=== PATIENT | female | born 1955 | race African-American/Black ===

== ENCOUNTER 2017-04-11 04:46 | Emergency (ER) | payer OTHER ==
[~2017-04-11] VITALS: Ht 160 cm; Wt 124.7 kg
[~2017-04-11 04:46] MED LIST: ADVAIR 250-501 EACH INH; DETROL2 MG ORAL; DIFLUCAN100 MG ORAL; ENBREL25 MG SUBQ; GLUCOSAMINE1000 M1 PO; LEVOTHYROXINE75 MCG ORAL; METHOTREXATE2.5 MG PO; NEURONTIN300 MG ORAL; NYSTATIN CREAM15 GM TOPIC; NYSTATIN1 EAC9 TOPIC; VITAMIN D-32000 UNI1 PO
[2017-04-11] MEDS ORDERED: PREDNISONE20 MG ORAL (05:07)
[2017-04-11] MEDS ORDERED: ANTI-ITCH28 G1 TP (05:07)
[2017-04-11] MEDS ORDERED: PredniSONE 20mg tab ORAL ONE (05:15)
[2017-04-11 05:25] VITALS: BP 132/92
[2017-04-11 05:28] VITALS: BP 132/92
--- NOTE | 2017-04-11 06:02 | Emergency Room Report ---
History of Present Illness General Chief Complaint: Skin Rash/Abscess Source: Patient Present Illness HPI Patient is a 61-year-old female who presented after increased rash her upper extremities. Patient prior history of rheumatoid arthritis had been taking methotrexate. Patient reported having increased burning sensation to her upper extremities. This did not radiate. She had no fever. Patient had been applying topical medications without relief. The patient prior history of allergic reactions to skin contact. Allergies: Coded Allergies: PENICILLINS (Unverified Allergy, Unknown, 10/21/14) Jerking movement Patient History Past Medical History: see triage record Last Menstrual Period: Menopause Now: No Reviewed Nursing Documentation: PMH: Agreed, PSxH: Agreed Nursing Documentation-PMH Past Medical History: No History, Except For Hx Asthma: Yes Hx Gastrointestinal Problems: No - Fibroid tumor removal 3 times, Myomectomy Hx Dialysis: No - [facility] in 2002, Uterine reconstruction op Review of Systems All Other Systems: negative except mentioned in HPI Physical Exam Vital Signs Date Time Temp Pulse Resp B/P Pulse Ox O2 Delivery O2 Flow Rate FiO2 04/11/17 04:57 97.9 88 16 136/89 99 Room Air General Appearance: well appearing, no apparent distress, alert, GCS 15 Head: normocephalic, atraumatic ENT: hearing grossly normal, normal voice Neck: full range of motion, supple Respiratory: no respiratory distress, speaking full sentences Musculoskeletal: normal inspection, back normal, no calf tenderness Neurologic: normal gait Psychiatric: mood/affect normal Skin: other - multiple excoriated urticarial lesions to upper extremities, no erythema Medical Decision Making Diagnostic Impression: Primary Impression: Rash and other nonspecific skin eruption ER Course Patient presented for skin rash. Differential diagnosis included was not limited to Jones-Adrien syndrome, urticaria, erythema multiforme, contact dermatitis. Patient's benign exam and does not appear to require any further imaging or laboratory testing at this time. The patient was given oral prednisone. The rash appears to be a urticarial type rash which may represent some contact allergy. Patient was given prescription for prednisone as well as Cortizone cream. As she is advised to take antihistamines [id number]. The patient shows no evidence of airway compromise or difficulty breathing. The patient is advised to return is she began having any concerning signs or symptoms. Last Vital Signs Date Time Temp Pulse Resp B/P Pulse Ox O2 Delivery O2 Flow Rate FiO2 04/11/17 05:28 97.9 86 16 132/92 99 Room Air Status: improved Disposition: HOME, SELF-CARE Condition: Stable Scripts Hydrocortisone 2% Cream (ANTI-ITCH 2% CREAM) Y Cr 28 GM TP DAILY, #30 GM Prov: Adrian Swenson 04/11/17 Prednisone* (PREDNISONE*) 20 Mg Tablet 40 MG ORAL DAILY, #10 TAB Prov: Adrian Swenson 04/11/17 Referrals: [facility] (PCP) Patient Instructions: Adrian Weiner Apr 11, 2017 06:02
[2017-04-11] MEDS ORDERED: BENADRYL25 MG ORAL (21:16)
[2017-04-11] MEDS ORDERED: [UNRECOGNIZED DRUG - OTHER] TP (21:16)
[2017-04-11] MEDS ORDERED: RANITIDINE HCL150 MG ORAL (21:16)
== END 2017-04-11 05:30 | disposition home or self-care (01) ==
LOC: EMR 05:00
DX: R21 Rash and other nonspecific skin eruption (principal); J45.909 Unspecified asthma, uncomplicated; Z88.0 Allergy status to penicillin
CPT/HCPCS: 99284

== ENCOUNTER 2017-04-11 18:28 | Emergency (ER) | payer OTHER ==
[~2017-04-11] VITALS: Ht 160 cm; Wt 124.7 kg
[~2017-04-11 18:28] MED LIST changes: +ANTI-ITCH28 G1 TP; +PREDNISONE20 MG ORAL
[2017-04-11] MEDS ORDERED: DiphenhydrAMINE 50mg/ml Inj IM ONE (19:00)
[2017-04-11] MEDS ORDERED: Ketorolac 60mg Inj IM ONE (19:00)
[2017-04-11 19:11] VITALS: BP 148/94
[2017-04-11 20:42] LABS: BASOPHILS % (AUTO) 0.8 % (0.0-2.0); EOSINOPHILS % (AUTO) 0.5 % (0.0-3.0); LYMPHOCYTES % (AUTO) 18.5 % (20.0-45.0); MEAN CORPUSCULAR HEMOGLOBIN 30.2 PG (27.0-31.0); MEAN CORPUSCULAR HGB CONC 32.9 G/DL (32.0-36.0); MEAN CORPUSCULAR VOLUME 92 FL (80-99); MEAN PLATELET VOLUME 8.1 FL (6.5-10.1); MONOCYTES % (AUTO) 3.6 % (1.0-10.0); NEUTROPHILS % (AUTO) 76.5 % (45.0-75.0); PLATELET COUNT 305 K/UL (150-450); RED BLOOD COUNT 4.48 M/UL (4.20-5.40); RED CELL DISTRIBUTION WIDTH 16.2 % (11.6-14.8); WHITE BLOOD COUNT 10.3 K/UL (4.8-10.8)
[2017-04-11 20:43] VITALS: BP 145/97
[2017-04-11 20:53] LABS: ALANINE AMINOTRANSFERASE 11 U/L (3-33); ALBUMIN/GLOBULIN RATIO 1.4 (1.0-2.7); ANION GAP 12 (5-15); ASPARTATE AMINO TRANSFERASE 17 U/L (5-40); CALCIUM 9.4 mg/dL (8.6-10.2); CARBON DIOXIDE 25 mEQ/L (20-30); CHLORIDE 104 mEQ/L (98-107); CREATININE 0.8 mg/dL (0.5-0.9); GLOMERULAR FILTRATION RATE > 60 mL/min (>60); HEMOLYSIS 17; POTASSIUM 4.4 mEQ/L (3.4-4.9); SODIUM 141 mEQ/L (135-145); TOTAL PROTEIN 7.2 g/dL (6.6-8.7)
[2017-04-11 21:00] LABS: INR 0.9 (0.9-1.1); PROTHROMBIN TIME 9.7 SEC (9.30-11.50)
[2017-04-11] MEDS ORDERED: BENADRYL25 MG ORAL (21:16)
[2017-04-11] MEDS ORDERED: [UNRECOGNIZED DRUG - OTHER] TP (21:16)
[2017-04-11] MEDS ORDERED: RANITIDINE HCL150 MG ORAL (21:16)
[2017-04-11 21:34] VITALS: BP 145/97
--- NOTE | 2017-04-11 21:38 | Emergency Room Report ---
History of Present Illness General Chief Complaint: Skin Rash/Abscess Source: Patient, Medical Record Present Illness HPI The patient is a [id number] female presenting for continuing rash. Patient was seen in this emergency department earlier this morning and was diagnosed with contact dermatitis. She was given 60 mg of prednisone as well as a prescription for prednisone and hydrocortisone. She states that symptoms have worsened and the rash is now encompassing more area. She states that she is experiencing an 8/10 burning/itching sensation of the rash. Pain does not radiate from the areas. She is unsure of what may have caused this but does state that she sat on the couch yesterday which caused her to have a reaction when she was a child. She is unsure if she ingested anything that may have caused the reaction. She denies any fever, chills, headache, vaginal discharge, pain or stiffness, nausea, vomiting Allergies: Coded Allergies: AMPICILLIN (Verified Allergy, Unknown, 04/11/17) PENICILLINS (Unverified Allergy, Unknown, 10/21/14) Jerking movement SULFA (SULFONAMIDE ANTIBIOTICS) (Unverified Allergy, Unknown, 04/11/17) Uncoded Allergies: FIGS (Allergy, Unknown, 04/11/17) PICKLES (Allergy, Unknown, 04/11/17) SULFA (Allergy, Unknown, 04/11/17) Patient History Past Medical History: see triage record Pertinent Family History: none Last Menstrual Period: 2002 Reviewed Nursing Documentation: PMH: Agreed, PSxH: Agreed Nursing Documentation-PMH Past Medical History: No History, Except For Hx Asthma: Yes Hx Gastrointestinal Problems: No - Fibroid tumor removal 3 times, Myomectomy, digestive blockages Hx Dialysis: No - [facility] in 2002, Uterine reconstruction op Review of Systems All Other Systems: negative except mentioned in HPI Physical Exam Vital Signs Date Time Temp Pulse Resp B/P Pulse Ox O2 Delivery O2 Flow Rate FiO2 04/11/17 18:39 98.1 110 16 155/98 97 Room Air Sp02 EP Interpretation: reviewed, normal General Appearance: no apparent distress, alert, GCS 15, non-toxic Head: normocephalic, atraumatic Eyes: bilateral eye PERRL, bilateral eye normal inspection ENT: hearing grossly normal, normal pharynx, no angioedema, normal voice Neck: full range of motion, supple/symm/no masses Respiratory: chest non-tender, lungs clear, normal breath sounds, no wheezing, speaking full sentences Cardiovascular #1: regular rate, rhythm, no edema Musculoskeletal: back normal, gait/station normal, normal range of motion Neurologic: alert, oriented x3, responsive, motor strength/tone normal, sensory intact, speech normal Psychiatric: judgement/insight normal, memory normal, mood/affect normal, no suicidal/homicidal ideation Skin: rash - macular rash to the L arm primarily. Also of the L abdomen, back, bilat forearms, and bilat lower legs Lymphatic: no adenopathy Medical Decision Making PA Attestation Dr. Donato is my supervising physician. Patient management was discussed with my supervising physician Diagnostic Impression: Primary Impression: Contact dermatitis Qualified Codes: L25.9 - Unspecified contact dermatitis, unspecified cause ER Course The patient is a [id number] female presenting for continuing rash. Ddx considered include but not limited to insect bite, contact dermatitis, eczema, cellulitis, ITP, vasculitis, herpes zoster, among others Rash is consistent with dermatitis. Macular. Erythematous. Crosses midline. TTP. + excoriation markings. No papules. The patient is given IM toradol and benadryl and states symptoms have reduced. Bloodwork unremarkable. She will be HI'ed home and will take the previously prescribed medications as directed. She is also given a prescription for benadryl and a cooling gel. She needs to see dermatology. ER precautions given Laboratory Tests Test 04/11/17 20:30 White Blood Count 10.3 K/UL (4.8-10.8) Red Blood Count 4.48 M/UL (4.20-5.40) Hemoglobin 13.5 G/DL (12.0-16.0) Hematocrit 41.2 % (37.0-47.0) Mean Corpuscular Volume 92 FL (80-99) Mean Corpuscular Hemoglobin 30.2 PG (27.0-31.0) Mean Corpuscular Hemoglobin Concent 32.9 G/DL (32.0-36.0) Red Cell Distribution Width 16.2 % (11.6-14.8) H Platelet Count 305 K/UL (150-450) Mean Platelet Volume 8.1 FL (6.5-10.1) Neutrophils (%) (Auto) 76.5 % (45.0-75.0) H Lymphocytes (%) (Auto) 18.5 % (20.0-45.0) L Monocytes (%) (Auto) 3.6 % (1.0-10.0) Eosinophils (%) (Auto) 0.5 % (0.0-3.0) Basophils (%) (Auto) 0.8 % (0.0-2.0) Prothrombin Time 9.7 SEC (9.30-11.50) Prothrombin Time INR 0.9 (0.9-1.1) PTT 24 SEC (23-33) Sodium Level 141 mEQ/L (135-145) Potassium Level 4.4 mEQ/L (3.4-4.9) Chloride Level 104 mEQ/L (98-107) Carbon Dioxide Level 25 mEQ/L (20-30) Anion Gap 12 (5-15) Blood Urea Nitrogen 21 mg/dL (7-23) Creatinine 0.8 mg/dL (0.5-0.9) Estimate Glomerular Filtration Rate > 60 mL/min (>60) Glucose Level 110 mg/dL (74-106) H Calcium Level 9.4 mg/dL (8.6-10.2) Total Bilirubin < 0.2 mg/dL (0.0-1.2) Aspartate Amino Transferase (AST) 17 U/L (5-40) Alanine Aminotransferase (ALT) 11 U/L (3-33) Alkaline Phosphatase 80 U/L (35-104) Total Protein 7.2 g/dL (6.6-8.7) Albumin 4.3 g/dL (3.5-5.2) Globulin 2.9 g/dL Albumin/Globulin Ratio 1.4 (1.0-2.7) Lab Results Impression unremarkable Last Vital Signs Date Time Temp Pulse Resp B/P Pulse Ox O2 Delivery O2 Flow Rate FiO2 04/11/17 20:43 97.8 109 14 145/97 97 Room Air Status: improved Disposition: HOME, SELF-CARE Condition: Improved Scripts Menthol (COOL GEL) 240 Gm Gel..gram. 240 GM TP PRN, #240 GM Prov: TERZIAN,SOFIA P.A. 04/11/17 Diphenhydramine Hcl* (BENADRYL*) 25 Mg Capsule 25 MG ORAL Q6H Y for Itching, #30 CAP Prov: TERZIAN,SOFIA P.A. 7/10/17 Ranitidine Hcl* (ZANTAC*) 150 Mg Tablet 150 MG ORAL DAILY, #7 TAB Prov: SOFIA ROSALES 04/11/17 Referrals: [facility] (PCP) Patient Instructions: Rash Additional Instructions: I discussed my findings with the patient. All questions and concerns have been answered. Treatment and medication compliance have been addressed. I advised the patient that they need to follow up with primary doctor as soon as possible. Return to ED if symptoms worsen, new symptoms arise, or if needed for any reason. Patient verbalized understanding of discharge instructions. The patient was informed she will likely have to followup with dermatology SOFIA ROSALES Apr 11, 2017 21:38
== END 2017-04-11 21:36 | disposition home or self-care (01) ==
LOC: EMR 18:55
DX: L25.9 Unspecified contact dermatitis, unspecified cause (principal); J45.909 Unspecified asthma, uncomplicated; Z88.2 Allergy status to sulfonamides; Z88.0 Allergy status to penicillin; Z91.018 Allergy to other foods
CPT/HCPCS: 36415; 80053; 85025; 85610; 85730; 96372; 96374; 99284; J1200

== ENCOUNTER 2017-08-23 23:35 | Emergency (ER) | payer OTHER ==
[~2017-08-23] VITALS: Ht 162.6 cm; Wt 124.7 kg
[~2017-08-23 23:35] MED LIST changes: +BENADRYL25 MG ORAL; +RANITIDINE HCL150 MG ORAL; +[UNRECOGNIZED DRUG - OTHER] TP
[2017-08-24] VITALS (7 sets, daily range): BP systolic 134–152; BP diastolic 56–82
[2017-08-24] MEDS ORDERED: Albuterol ud Inhalation HHN ONE (00:15)
[2017-08-24] MEDS ORDERED: Solu-MEDROL 125mg Inj IVP ONE (00:15)
[2017-08-24] MEDS ORDERED: Ipratropium 0.02% Inh Soln 2.5ml UD HHN ONE (00:15)
[2017-08-24 02:04] LABS: BASOPHILS % (AUTO) 1.5 % (0.0-2.0); EOSINOPHILS % (AUTO) 4.1 % (0.0-3.0); MEAN CORPUSCULAR HEMOGLOBIN 28.8 PG (27.0-31.0); MEAN CORPUSCULAR HGB CONC 32.2 G/DL (32.0-36.0); MEAN CORPUSCULAR VOLUME 89 FL (80-99); MEAN PLATELET VOLUME 8.5 FL (6.5-10.1); MONOCYTES % (AUTO) 10.8 % (1.0-10.0); NEUTROPHILS % (AUTO) 33.7 % (45.0-75.0); PLATELET COUNT 224 K/UL (150-450); RED BLOOD COUNT 5.06 M/UL (4.20-5.40); RED CELL DISTRIBUTION WIDTH 15.4 % (11.6-14.8); WHITE BLOOD COUNT 5.1 K/UL (4.8-10.8)
[2017-08-24 02:24] LABS: PROTHROMBIN TIME 10.2 SEC (9.30-11.50)
[2017-08-24 02:38] LABS: ALANINE AMINOTRANSFERASE 16 U/L (12-78); ALBUMIN/GLOBULIN RATIO 0.9 (1.0-2.7); ANION GAP 11 mmol/L (5-15); ASPARTATE AMINO TRANSFERASE 30 U/L (15-37); CARBON DIOXIDE 23 MMOL/L (21-32); CHLORIDE 108 MMOL/L (98-107); POTASSIUM 4.2 MMOL/L (3.5-5.1); SODIUM 142 MMOL/L (136-145); TOTAL PROTEIN 7.1 G/DL (6.4-8.2)
[2017-08-24 02:47] LABS: CREATININE 0.9 MG/DL (0.55-1.30); GLOMERULAR FILTRATION RATE > 60 mL/min (>60)
[2017-08-24 02:49] LABS: CALCIUM 8.9 MG/DL (8.5-10.1)
[2017-08-24 03:38] LABS: APPEARANCE,URINE CLEAR; KETONES,URINE NEGATIVE (NEGATIVE); LEUKOCYTE ESTERASE ,URINE NEGATIVE (NEGATIVE); PH,URINE 5 (4.5-8.0); UROBILINOGEN,URINE NORMAL MG/DL (0.0-1.0)
[2017-08-24 03:53] LABS: NITRITE,URINE NEGATIVE (NEGATIVE); PROTEIN,URINE NEGATIVE (NEGATIVE)
[2017-08-24] MEDS ORDERED: Azithromycin 500 MG in D5W 275 ML IVPB ONE (04:30)
[2017-08-24] MEDS ORDERED: Azithromycin 500mg Inj IV ONE (04:45)
[2017-08-24] MEDS: Albuterol ud Inhalation HHN SCH ×3 (04:51→05:50)
--- NOTE | 2017-08-24 08:15 | Emergency Room Report ---
History of Present Illness General Chief Complaint: Dyspnea/Respdistress Source: Patient Present Illness HPI Patient presents with 3-4 days of increased cough with productive phlegm and wheezing. She has asthma and has been using her inhaler. She is unaware if she has used prednisone in the past. She had a standing rx for zithromx which was discontinued with MD changes. She feels this is what she needs. Some minimal chest pressure. She also complains of dizziness with standing. She has passed out in the past, but not recently. She has been able to eat and denies N or V. No dysuria or change in bowels. This is not her worst attack. She has migraines and complains of mild (2/10) pain which is throbbing and worse with coughing. She takes methotrexate for arthritis and is more susceptible to infections. Chronic joint pain without change. She also has fibromyalgia. No depression. Recent Rx for med for HTN given due to some recent edema. No calf tenderness. Allergies: Coded Allergies: AMPICILLIN (Verified Allergy, Unknown, 08/24/17) PENICILLINS (Unverified Allergy, Unknown, 08/24/17) Jerking movement SULFA (SULFONAMIDE ANTIBIOTICS) (Unverified Allergy, Unknown, 08/24/17) Uncoded Allergies: FIGS (Allergy, Unknown, 04/11/17) PICKLES (Allergy, Unknown, 04/11/17) SULFA (Allergy, Unknown, 04/11/17) Patient History Past Medical History: see triage record Past Surgical History: hysterectomy Social History: Reports: smoking - former Social History Narrative at home Last Menstrual Period: n/a Reviewed Nursing Documentation: PMH: Agreed, PSxH: Agreed Nursing Documentation-PMH Past Medical History: No History, Except For Hx Asthma: Yes Hx Gastrointestinal Problems: No - Fibroid tumor removal 3 times, Myomectomy, digestive blockages Hx Dialysis: No - [facility] in 2002, Uterine reconstruction op Review of Systems All Other Systems: negative except mentioned in HPI Physical Exam Vital Signs Date Time Temp Pulse Resp B/P (MAP) Pulse Ox O2 Delivery O2 Flow Rate FiO2 08/24/17 00:19 97.7 84 16 157/77 100 Room Air Sp02 EP Interpretation: reviewed, normal General Appearance: well appearing, no apparent distress, GCS 15 Head: normocephalic Eyes: bilateral eye normal inspection, bilateral eye PERRL ENT: moist mucus membranes Neck: supple Respiratory: no respiratory distress, no retraction, no accessory muscle use, wheezing, expiration Cardiovascular #1: regular rate, rhythm, edema - trace bilat Cardiovascular #2: 2+ radial (R) Gastrointestinal: normal inspection, normal bowel sounds, non tender, no mass, non-distended, overweight Musculoskeletal: back normal, gait/station normal, normal range of motion, no calf tenderness Neurologic: alert, oriented x3, grossly normal Psychiatric: mood/affect normal Skin: normal inspection, warm/dry Medical Decision Making Diagnostic Impression: Primary Impression: Asthmatic bronchitis Qualified Codes: J45.41 - Moderate persistent asthma with (acute) exacerbation Additional Impressions: Edema Eosinophilia ER Course Patient with productive cough and wheezing. DDx: AMI, COPD exacerbation, pneumonia amongst others. VS and exam against PE. Urgent evaluation with EKG, CXR and labs. Treatment with breathing treatments and solumedrol. Due to infectious nature of cough, antibiotics indicated. Gentle hydration. EKG no injury. CXR no infiltrate. Labs with normal WBC but eosinophilia. Improved with initial treatment but still wheezing. Repeat treatments. Improved. Ambulated without dyspnea. Discussed eosinophilia and suggested future used of steroid inhaler. Call to pharmacy to confirm Rx for HTN. It is HCTZ. Discussed possible use - no indication for BP. Also advised to decreased salt intake. Patient stable for outpatient evaluation and treatment. Patient request for diflucan as susceptible to yeast with abx. Laboratory Tests Test 08/24/17 01:45 08/24/17 03:30 White Blood Count 5.1 K/UL (4.8-10.8) Red Blood Count 5.06 M/UL (4.20-5.40) Hemoglobin 14.6 G/DL (12.0-16.0) Hematocrit 45.2 % (37.0-47.0) Mean Corpuscular Volume 89 FL (80-99) Mean Corpuscular Hemoglobin 28.8 PG (27.0-31.0) Mean Corpuscular Hemoglobin Concent 32.2 G/DL (32.0-36.0) Red Cell Distribution Width 15.4 % (11.6-14.8) H Platelet Count 224 K/UL (150-450) Mean Platelet Volume 8.5 FL (6.5-10.1) Neutrophils (%) (Auto) 33.7 % (45.0-75.0) L Lymphocytes (%) (Auto) 50.0 % (20.0-45.0) H Monocytes (%) (Auto) 10.8 % (1.0-10.0) H Eosinophils (%) (Auto) 4.1 % (0.0-3.0) H Basophils (%) (Auto) 1.5 % (0.0-2.0) Prothrombin Time 10.2 SEC (9.30-11.50) Prothrombin Time INR 1.0 (0.9-1.1) PTT 27 SEC (23-33) Sodium Level 142 MMOL/L (136-145) Potassium Level 4.2 MMOL/L (3.5-5.1) Chloride Level 108 MMOL/L (98-107) H Carbon Dioxide Level 23 MMOL/L (21-32) Anion Gap 11 mmol/L (5-15) Blood Urea Nitrogen 16 mg/dL (7-18) Creatinine 0.9 MG/DL (0.55-1.30) Estimate Glomerular Filtration Rate > 60 mL/min (>60) Glucose Level 105 MG/DL (74-106) Calcium Level 8.9 MG/DL (8.5-10.1) Total Bilirubin 0.1 MG/DL (0.2-1.0) L Aspartate Amino Transferase (AST) 30 U/L (15-37) Alanine Aminotransferase (ALT) 16 U/L (12-78) Alkaline Phosphatase 77 U/L (46-116) Total Creatine Kinase 114 U/L (26-308) Troponin I 0.002 ng/mL (0.000-0.056) Pro-B-Type Natriuretic Peptide 17 pg/mL (0-125) Total Protein 7.1 G/DL (6.4-8.2) Albumin 3.4 G/DL (3.4-5.0) Globulin 3.7 g/dL Albumin/Globulin Ratio 0.9 (1.0-2.7) L Urine Color Yellow Urine Appearance Clear Urine pH 5 (4.5-8.0) Urine Specific Bunch 1.025 (1.005-1.035) Urine Protein Negative (NEGATIVE) Urine Glucose (UA) Negative (NEGATIVE) Urine Ketones Negative (NEGATIVE) Urine Occult Blood Negative (NEGATIVE) Urine Nitrite Negative (NEGATIVE) Urine Bilirubin Negative (NEGATIVE) Urine Urobilinogen Normal MG/DL (0.0-1.0) Urine Leukocyte Esterase Negative (NEGATIVE) Microbiology Date/Time Source Procedure Growth Status 08/24/17 02:00 Nose Influenza Types A,B Antigen (SHRUTHI) - Final Complete EKG Diagnostic Results Rate: normal Rhythm: NSR ST Segments: no acute changes Rhythm Strip Diag. Results EP Interpretation: yes Rhythm: NSR, no PVC's, no ectopy Chest X-Ray Diagnostic Results Chest X-Ray Diagnostic Results : Chest X-Ray Ordered: Yes # of Views/Limited/Complete: 1 View Impression: Other Electronically Signed by: Electronically signed by Bill Malloy MD Last Vital Signs Date Time Temp Pulse Resp B/P (MAP) Pulse Ox O2 Delivery O2 Flow Rate FiO2 08/24/17 08:54 98.3 85 18 138/75 99 Room Air Status: improved Disposition: HOME, SELF-CARE Condition: Improved Scripts Fluconazole* (DIFLUCAN*) 100 Mg Tablet 100 MG ORAL ONCE for 1 Day, #1 TAB take at the end of the antibiotics Prov: Bill Malloy M.D. 08/24/17 Azithromycin* (ZITHROMAX*) 250 Mg Tablet 250 MG ORAL DAILY, #4 TAB Prov: Bill Malloy M.D. 08/24/17 Prednisone* (PREDNISONE*) 20 Mg Tablet 40 MG ORAL DAILY, #10 TAB Prov: Bill Malloy M.D. 08/24/17 Referrals: [facility] ([facility]P) Bill Malloy M.D. Aug 24, 2017 08:15
[2017-08-24] MEDS ORDERED: PREDNISONE20 MG ORAL (08:20)
[2017-08-24] MEDS ORDERED: ZITHROMAX250 MG ORAL (08:20)
[2017-08-24] MEDS ORDERED: DIFLUCAN100 MG ORAL (09:04)
--- NOTE | 2017-08-24 11:35 | Diagnostic Imaging Report ---
Indication: DYSPNEA Technique: One view of the chest Comparison: none Findings: Body habitus limits evaluation. Lungs and pleural spaces are clear. Heart size is normal. 1 cm long tubular foreign body projects in the right axilla. Impression: No acute process Right axillary region foreign body. Probably external to the patient-correlate with clinical findings This agrees with the preliminary interpretation provided by the emergency room physician
--- NOTE | 2017-08-31 17:06 | Cardiology Report ---
APPROVED REPORT EKG Measurement Heart [id number] Normal sinus rhythm Normal ECG
== END 2017-08-24 08:56 | disposition home or self-care (01) ==
LOC: EMR 08-24 00:20
DX: J45.909 Unspecified asthma, uncomplicated (principal); R60.0 Localized edema; D72.1 Eosinophilia; Z88.0 Allergy status to penicillin; Z88.2 Allergy status to sulfonamides; Z91.018 Allergy to other foods
CPT/HCPCS: 36415; 71010; 80053; 81003; 82550; 83880; 84484; 85025; 85610; 85730; 86710; 93005; 94640; 94664; 96361; 96374; 99284; J0456; J2930

== ENCOUNTER 2017-09-16 19:51 | Emergency (ER) | payer OTHER ==
[~2017-09-16] VITALS: Ht 160 cm; Wt 126.6 kg
[~2017-09-16 19:51] MED LIST changes: +ZITHROMAX250 MG ORAL
[2017-09-16] MEDS ORDERED: Lidocaine 1% 10mg/ml/EPI 0.01mg/ml 50ml INJ ONE (20:04)
[2017-09-16] MEDS ORDERED: BACITRACIN ZIN1 EACH TOPIC (20:37)
[2017-09-16] MEDS ORDERED: Lidocaine 1% 10mg/ml/Epi 0.005mg/ml 30ml vial INJ ONE (20:45)
[2017-09-16] MEDS: Bacitracin Oint UD TOPIC ONE (20:46)
[2017-09-16 20:53] VITALS: BP 133/85
--- NOTE | 2017-09-16 22:35 | Emergency Room Report ---
History of Present Illness General Chief Complaint: Laceration Present Illness HPI Patient is 61-year-old female who presented after increased right lower extremity pain after accidentally cutting her right leg on a bedframe. Patient denied any numbness or weakness distally. She denied any foreign body. Patient states that she had not had recent vaccinations. She denies any numbness or weakness distally. She has prior history of rheumatoid arthritis. She takes methotrexate as well as had recently been on prednisone. Allergies: Coded Allergies: AMPICILLIN (Verified Allergy, Unknown, 08/24/17) PENICILLINS (Unverified Allergy, Unknown, 08/24/17) Jerking movement SULFA (SULFONAMIDE ANTIBIOTICS) (Unverified Allergy, Unknown, 08/24/17) Uncoded Allergies: FIGS (Allergy, Unknown, 04/11/17) PICKLES (Allergy, Unknown, 04/11/17) SULFA (Allergy, Unknown, 04/11/17) Patient History Past Medical History: asthma, other - rheumatoid arthritis Reviewed Nursing Documentation: PMH: Agreed, PSxH: Agreed Nursing Documentation-PMH Hx Asthma: Yes Hx Gastrointestinal Problems: No - Fibroid tumor removal 3 times, Myomectomy, digestive blockages Hx Dialysis: No - [facility] in 2002, Uterine reconstruction op Review of Systems All Other Systems: negative except mentioned in HPI Physical Exam Vital Signs Date Time Temp Pulse Resp B/P (MAP) Pulse Ox O2 Delivery O2 Flow Rate FiO2 09/16/17 19:54 98.8 106 18 133/85 96 Room Air General Appearance: well appearing, no apparent distress, GCS 15, Chronically Ill Head: normocephalic, atraumatic ENT: hearing grossly normal, normal voice Neck: full range of motion, supple Respiratory: no respiratory distress, speaking full sentences Musculoskeletal: no calf tenderness, other - laceration Neurologic: normal inspection, alert, oriented x3, responsive, avionics mechanic III-XII nml as tested, motor strength/tone normal, normal gait Psychiatric: normal inspection, mood/affect normal Skin: no rash, laceration - laceration to right calf below knee Procedures Laceration/Wound Repair Laceration/Wound Repair : Consent: Emergent Wound Location: lower extremity Wound's Depth, Shape: linear, flap Wound Length (cm): 10 Wound Explored: clean Irrigated w/ Saline (ccs): 200 Betadine Prep?: Yes Anesthesia: Lidocaine w/ Epi Volume Anesthetic (ccs): 6 Wound Debrided: minimal Wound Repaired With: sutures Suture Size/Type: 3:0 Number of Sutures: 9 Layer Closure?: Yes Deep Layer Suture Size/Type: 3:0, other - vicryl Number Deep Layer Sutures: 5 Splint Applied?: Yes Patient Tolerated: Well Complications: None Medical Decision Making Diagnostic Impression: Primary Impression: Laceration ER Course Patient presented for laceration. Differential diagnoses included foreign body , nerve injury, arterial injury among others. Patient's benign exam and does not appear to require any further imaging or laboratory testing at this time. The wound was irrigated and closed. The patient tolerated well. She appears to have normal peroneal nerve function. Patient was advised to have the wound rechecked in 4-5 days and have suture removal in 2 weeks. Patient was advised wound care as well as return precautions Last Vital Signs Date Time Temp Pulse Resp B/P (MAP) Pulse Ox O2 Delivery O2 Flow Rate FiO2 09/16/17 20:53 98.8 18 133/85 96 Room Air 09/16/17 19:54 106 Status: improved Disposition: HOME, SELF-CARE Condition: Stable Scripts Bacitracin Zinc* (BACITRACIN ZINC*) 1 Each Packet 1 APPLIC TOPIC THREE TIMES A DAY, #30 PACKET Prov: Adrian Swenson 09/16/17 Referrals: [facility] (PCP) Patient Instructions: Laceration Care, Adult Additional Instructions: wound check in 4-5 days, suture removal in 14 days Adrian Swenson Sep 16, 2017 22:35
== END 2017-09-16 20:53 | disposition home or self-care (01) ==
LOC: EMR 20:39
DX: S81.812A Laceration without foreign body, left lower leg, initial encounter (principal); W26.8XXA Contact with other sharp object(s), not elsewhere classified, initial encounter; Y92.009 Unspecified place in unspecified non-institutional (private) residence as the place of occurrence of the external cause; J45.909 Unspecified asthma, uncomplicated; Z88.0 Allergy status to penicillin; Z88.2 Allergy status to sulfonamides; Z91.018 Allergy to other foods
CPT/HCPCS: 12034; 99284; Z7502

== ENCOUNTER 2017-10-02 18:18 | Emergency (ER) | payer OTHER ==
[~2017-10-02] VITALS: Ht 165.1 cm; Wt 125.6 kg
[~2017-10-02 18:18] MED LIST changes: +BACITRACIN ZIN1 EACH TOPIC
[2017-10-02] MEDS ORDERED: BACITRACIN-P28.35 GM TP (19:36)
[2017-10-02] MEDS ORDERED: CEPHALEXIN500 MG ORAL (19:36)
[2017-10-02 19:40] VITALS: BP 146/89
[2017-10-02] MEDS ORDERED: Bacitracin Oint UD TOPIC ONE (19:45)
[2017-10-02 19:48] VITALS: BP 146/89
--- NOTE | 2017-10-02 21:16 | Emergency Room Report ---
History of Present Illness General Chief Complaint: Wound Recheck/Suture Removal Present Illness HPI 61 Yo Female presents to the ED c/o Sutures placed in the right calf 16 days ago with erythema and tenderness. Patient reports for evaluation for possible infection. Patient states she has not followed up with a PMD. Denies fevers or chills denies discharge however she states when she cleaned with hydrogen peroxide earlier today it foamed up. She is up-to-date with vaccinations. Allergies: Coded Allergies: AMPICILLIN (Verified Allergy, Unknown, 08/24/17) PENICILLINS (Unverified Allergy, Unknown, 08/24/17) Jerking movement SULFA (SULFONAMIDE ANTIBIOTICS) (Unverified Allergy, Unknown, 08/24/17) Uncoded Allergies: FIGS (Allergy, Unknown, 04/11/17) PICKLES (Allergy, Unknown, 04/11/17) SULFA (Allergy, Unknown, 04/11/17) Patient History Past Medical History: see triage record Past Surgical History: none Pertinent Family History: none Last Menstrual Period: na Now: No Immunizations: UTD Reviewed Nursing Documentation: PMH: Agreed, PSxH: Agreed Nursing Documentation-PMH Hx Asthma: Yes Hx Gastrointestinal Problems: No - Fibroid tumor removal 3 times, Myomectomy, digestive blockages Hx Dialysis: No - [facility] in 2002, Uterine reconstruction op Review of Systems All Other Systems: negative except mentioned in HPI Physical Exam Vital Signs Date Time Temp Pulse Resp B/P (MAP) Pulse Ox O2 Delivery O2 Flow Rate FiO2 10/02/17 18:35 98.6 72 18 146/89 98 Room Air Sp02 EP Interpretation: reviewed, normal General Appearance: no apparent distress, alert, GCS 15, non-toxic Head: normocephalic, atraumatic ENT: hearing grossly normal, normal voice Neck: full range of motion Respiratory: lungs clear, normal breath sounds, speaking full sentences Cardiovascular #1: regular rate, rhythm Gastrointestinal: normal bowel sounds, non tender, soft, no guarding, no rebound Rectal: deferred Musculoskeletal: back normal, gait/station normal, normal range of motion, inflammation - superficial to the sutured area., tender - localized ttp to previously sutured laceration on the right lateral calf. Neurologic: alert, oriented x3, responsive, motor strength/tone normal, sensory intact, normal gait, speech normal Skin: normal color, no rash, warm/dry, well hydrated, other - 10cm previously sutured laceration with some superficial inflammation about the sutures, erythema, and mild tenderness. Lymphatic: no adenopathy Medical Decision Making PA Attestation Dr. Pratt is my supervising Physician whom patient management has been discussed with. Diagnostic Impression: Primary Impression: Encounter for removal of sutures Additional Impression: Wound cellulitis ER Course 61 Yo Female presents to the ED c/o Sutures placed in the right half over 2-1/2 weeks ago with erythema and tenderness. Patient reports for evaluation for possible infection. Patient states she has not followed up with a PMD. Denies fevers or chills denies discharge however she states when she cleaned with hydrogen peroxide earlier today it foamed up. She is up-to-date with vaccinations. Ddx considered but are not limited to laceration, tendon injury, cellulitis, dehiscence. Vital signs: are WNL, pt. is afebrile H&PE are most consistent with: healed laceration of the healed laceration of the right calf with sutures requiring removal. mild wound cellulitis suspected as small amount of pus after removing last suture on the most lateral aspect. no dehiscence. mild erythema mostly localized rejection of sutures. ORDERS: none required at this time, the diagnosis is clinical ED INTERVENTIONS: - 9 Sutures removed. DISCHARGE: At this time pt. is stable for d/c to home. Will provide printed patient care instructions, and any necessary prescriptions. Care plan and follow up instructions have been discussed with the patient prior to discharge. Last Vital Signs Date Time Temp Pulse Resp B/P (MAP) Pulse Ox O2 Delivery O2 Flow Rate FiO2 10/02/17 19:48 98.6 72 18 146/89 98 Room Air Disposition: HOME, SELF-CARE Condition: Stable Scripts Bacitracin/Polymyxin B Sulfate (BACITRACIN-POLYMYXIN OINTMENT) 28.35 Gm Oint...g. 1 APPLIC TP BID, #28.3 GM Prov: Jacqueline Guido P.Adriana 10/02/17 Cephalexin* (KEFLEX*) 500 Mg Capsule 500 MG ORAL EVERY 12 HOURS for 7 Days, #14 CAP 0 Refills Prov: Jacqueline Guido.Adriana 10/02/17 Referrals: [facility],REFERRING (PCP) Patient Instructions: Wound Check Additional Instructions: Take medications as directed. Follow up with a Primary Care Provider in 3-5 days, even if your symptoms have resolved. --Please review list of primary care clinics, if you do not already have a primary care provider Return sooner to ED if new symptoms occur, or current symptoms become worse. - Please note that this Emergency Department Report was dictated using [employer] financial planning technology software, occasionally this can lead to erroneous entry secondary to interpretation by the dictation equipment. Jacqueline Guido Oct 02, 2017 21:16
== END 2017-10-02 19:48 | disposition home or self-care (01) ==
LOC: EMR 19:08
DX: S81.811D Laceration without foreign body, right lower leg, subsequent encounter (principal); X58.XXXD Exposure to other specified factors, subsequent encounter; L03.115 Cellulitis of right lower limb; Z48.02 Encounter for removal of sutures; Z88.0 Allergy status to penicillin; Z88.2 Allergy status to sulfonamides; J45.909 Unspecified asthma, uncomplicated
CPT/HCPCS: 99284

== ENCOUNTER 2018-05-31 07:06 | Emergency (ER) | payer OTHER ==
[~2018-05-31] VITALS: Ht 165.1 cm; Wt 124.7 kg
[~2018-05-31 07:06] MED LIST changes: +BACITRACIN-P28.35 GM TP; +CEPHALEXIN500 MG ORAL
--- NOTE | 2018-05-31 08:02 | Emergency Room Report ---
History of Present Illness General Chief Complaint: Dizziness Present Illness HPI This patient is here b/c feeling lightheaded and she took her bp at home last night and today. Values around ~100-107 SBP. Today at triage SBP 129. No spinning sensation, no dizziness, just a vague, mild lightheaded feeling. Yesterday she had poor appetite and ate only a hard boiled egg and later a salad. No trauma, no fever, no shortness of breath, no chest pain, no nausea, no vomiting, no diarrhea, no abdominal pain, no syncope, LOC, headache. Normal bladder/bowel. No travel. No leg pain/swelling. The patient does have PMD she can see in the future. Amongst her few meds is HCTZ. Pt. thinks she is currently in w/u to r/o RA. Allergies: Coded Allergies: AMPICILLIN (Verified Allergy, Unknown, 08/24/17) PENICILLINS (Unverified Allergy, Unknown, 08/24/17) Jerking movement SULFA (SULFONAMIDE ANTIBIOTICS) (Unverified Allergy, Unknown, 08/24/17) Uncoded Allergies: FIGS (Allergy, Unknown, 04/11/17) PICKLES (Allergy, Unknown, 04/11/17) SULFA (Allergy, Unknown, 04/11/17) Nursing Documentation-PMH Hx Asthma: Yes Hx Gastrointestinal Problems: No - Fibroid tumor removal 3 times, Myomectomy, digestive blockages Hx Dialysis: No - [facility] in 2002, Uterine reconstruction op Review of Systems Constitutional: Reports: no symptoms Eye: Reports: no symptoms ENT: Reports: no symptoms Respiratory: Reports: no symptoms Cardiovascular: Reports: no symptoms Gastrointestinal: Reports: no symptoms Genitourinary: Reports: no symptoms Musculoskeletal: Reports: no symptoms Skin: Reports: no symptoms Psychiatric: Reports: no symptoms Neurological: Reports: dizziness Endocrine: Reports: no symptoms Hematologic/Lymphatic: Reports: no symptoms Allergic: Reports: no symptoms All Other Systems: negative except mentioned in HPI Physical Exam Vital Signs Date Time Temp Pulse Resp B/P (MAP) Pulse Ox O2 Delivery O2 Flow Rate FiO2 05/31/18 07:35 98.0 99 18 129/79 96 Room Air 98.1 Sp02 EP Interpretation: reviewed, normal General Appearance: normal inspection, well appearing, no apparent distress, alert, GCS 15, non-toxic, obese Head: normocephalic, atraumatic Eyes: bilateral eye normal inspection, bilateral eye PERRL, bilateral eye EOMI ENT: normal ENT inspection, hearing grossly normal, normal pharynx, no angioedema, normal voice, moist mucus membranes Neck: full range of motion, supple, no meningismus, no bony tend Respiratory: normal inspection, lungs clear, normal breath sounds, no rhonchi, no respiratory distress, no retraction, no accessory muscle use, no wheezing Cardiovascular #1: regular rate, rhythm, no edema Musculoskeletal: gait/station normal, normal range of motion Neurologic: normal inspection, alert, oriented x3, responsive, motor strength/ tone normal Psychiatric: normal inspection, judgement/insight normal, memory normal Suicide Risk Assessment: Suicidal Ideation: No Had intent to initiate attempt: No Pt's plan for suicide attempt: No Has means to complete attempt: No Skin: normal inspection, normal color, no rash, warm/dry Medical Decision Making Diagnostic Impression: Primary Impression: Dizziness ER Course I advised patient not to check bp at home. Also it sounds as though she does not need bp meds at all and advised to d/w pmd. She states SBP ~140 when she is at PMD. I advised to check BP at end of MD visit and probably lower. For today, there is no urgent medical situation and pt. safe for d/c. Last Vital Signs Date Time Temp Pulse Resp B/P (MAP) Pulse Ox O2 Delivery O2 Flow Rate FiO2 05/31/18 07:35 98.0 99 18 129/79 96 Room Air 98.1 Disposition: HOME, SELF-CARE Referrals: NON PHYSICIAN (PCP) Patient Instructions: Mario Marrufo M.D. May 31, 2018 08:02
[2018-05-31 08:05] VITALS: BP 146/76
[2018-05-31 08:06] VITALS: BP 146/76
== END 2018-05-31 08:15 | disposition home or self-care (01) ==
LOC: EMR 07:45
DX: R42 Dizziness and giddiness (principal); J45.909 Unspecified asthma, uncomplicated; Z88.1 Allergy status to other antibiotic agents; Z88.0 Allergy status to penicillin; Z88.2 Allergy status to sulfonamides; Z91.018 Allergy to other foods
CPT/HCPCS: 99282